=== PATIENT | female | born 2005 | race Caucasian/White ===

== ENCOUNTER 2024-02-12 23:35 | Emergency (ER) | payer MEDICAID ==
[~2024-02-12] VITALS: Ht 152.4 cm; Wt 60.8 kg
[2024-02-13] MEDS ORDERED: PRED50TA PO (00:52)
[2024-02-13] MEDS ORDERED: predniSONE 20 MG TABLET ONE (00:53)
[2024-02-13] MEDS ORDERED: diphenhydrAMINE HCL ELIX 25 MG/10 ML UDC ONE (00:53)
[2024-02-13] MEDS: predniSONE 50 MG TABLET PO ONE (00:56)
[2024-02-13] MEDS: DIPHENHYDRAMINE HCL 12.5 MG/5 ML UDC PO ONE (00:56)
[2024-02-13 01:14] VITALS: BP 125/83; TEMP 98.7; O2SAT 99
== END 2024-02-13 01:15 | disposition home or self-care (01) ==
LOC: ER 23:44
DX: R21 Rash and other nonspecific skin eruption (principal)
CPT/HCPCS: 99283; Q0163 ×2; J7512